=== PATIENT | female | born 1960 | race Two or more races ===

== ENCOUNTER 2018-04-15 10:36 | Emergency (ER) | payer OTHER ==
[~2018-04-15] VITALS: Ht 152.4 cm; Wt 59.0 kg
[2018-04-15 10:50] VITALS: BP 172/77
[2018-04-15] MEDS ORDERED: IBUPROFEN600 MG ORAL (10:57)
--- NOTE | 2018-04-15 11:03 | Emergency Room Report ---
History of Present Illness General Chief Complaint: Back Injury Source: Patient Present Illness HPI 57-year-old female presents with right low back pain that started 6 days ago when she was at work and a cart hit her in the right low back, she reports she did not fall down, had no major injuries, went to an urgent care center that day was given anti-inflammatories, today she woke up and felt it hurt her again when she leaned forward so she decided, to get checked out and requests an x- ray. She denies any use of anticoagulants or blood thinners, she is not on any medications other than pain meds were prescribed last week by urgent care, she denies any numbness tingling weakness, urinary symptoms, or any other complaints. Allergies: Coded Allergies: No Known Allergies (Unverified , 04/15/18) Patient History Past Medical History: see triage record Reviewed Nursing Documentation: PMH: Agreed; PSxH: Agreed Nursing Documentation-PMH Past Medical History: No History, Except For Hx Hypertension: Yes Review of Systems All Other Systems: negative except mentioned in HPI Physical Exam Vital Signs Date Time Temp Pulse Resp B/P (MAP) Pulse Ox O2 Delivery O2 Flow Rate FiO2 04/15/18 10:48 98.1 98 14 172/77 97 Room Air 98.1 Sp02 EP Interpretation: reviewed, normal General Appearance: no apparent distress, alert, non-toxic Head: normocephalic Eyes: bilateral eye normal inspection, bilateral eye PERRL, bilateral eye EOMI ENT: normal ENT inspection, hearing grossly normal, normal pharynx, no angioedema, normal voice, moist mucus membranes Neck: normal inspection, full range of motion, supple, supple/symm/no masses Respiratory: chest non-tender, lungs clear, normal breath sounds, chest symmetrical, palpation of chest normal Cardiovascular #1: normal peripheral pulses, regular rate, rhythm, no edema Cardiovascular #2: 2+ radial (R), 2+ radial (L), 2+ dorsalis pedis (R), 2+ dorsalis pedis (L) Gastrointestinal: normal inspection, non tender, soft, no mass, no guarding, no rebound Rectal: deferred Genitourinary: normal inspection, no CVA tenderness Musculoskeletal: back normal, gait/station normal, normal range of motion, non- tender, no calf tenderness Neurologic: alert, responsive, load mixer III-XII nml as tested, motor strength/tone normal, SLR negative, sensory intact, speech normal Psychiatric: judgement/insight normal, memory normal, mood/affect normal Skin: normal color, no rash, warm/dry, normal turgor, other - No contusions, no hematomas, no ecchymosis Lymphatic: no adenopathy Medical Decision Making Diagnostic Impression: Primary Impression: Muscle strain Additional Impression: Injury of back ER Course Patient was unremarkable examination, likely muscle strain, examination and x- ray normal, will discharge home with reassurance and ibuprofen Other X-Ray Diagnostic Results Other X-Ray Diagnostic Results : X-Ray ordered: Lumbar spine # of Views/Limited Vs Complete: 3 View Indication: Pain Interpretation: no dislocation, no soft tissue swelling, no fractures, nonspecific bowel gas, no sbo Impression: No acute disease Electronically Signed by: Angelic Feldman MD Last Vital Signs Date Time Temp Pulse Resp B/P (MAP) Pulse Ox O2 Delivery O2 Flow Rate FiO2 04/15/18 10:48 98.1 98 14 172/77 97 Room Air 98.1 Disposition: HOME, SELF-CARE Condition: Stable Scripts Ibuprofen* (MOTRIN*) 600 Mg Tablet 600 MG ORAL Q8H PRN for For Pain, #10 TAB 0 Refills Prov: ANGELIC FELDMAN M.D 04/15/18 Departure Forms: Return to Work Return to Work in (Days): 1 Patient Instructions: Back Pain, Adult ANGELIC FELDMAN M.D Apr 15, 2018 11:03
--- NOTE | 2018-04-15 12:30 | Diagnostic Imaging Report ---
EXAM: XR Lumbar Spine, 2 or 3 Views CLINICAL HISTORY: PAIN TECHNIQUE: Frontal and lateral views of the lumbar spine. COMPARISON: No relevant prior studies available. FINDINGS: Vertebrae: Grade 1 anterolisthesis of L4 relative to L5 with 6 mm offset. 5 [id number] lumbar vertebral segments. The lumbar vertebral body heights are preserved without evidence of acute fracture. Disc spaces: Multilevel degenerative changes with joint space loss and endplate osteophytes, most prominent at T12-L1. Bilateral facet arthrosis, most prominent at L4-5 and L5-S1. Soft tissues: Unremarkable. IMPRESSION: 1. Grade 1 anterolisthesis of L4 relative to L5 with 6 mm offset. 2. Multilevel degenerative changes with joint space loss and endplate osteophytes, most prominent at T12-L1. 3. Bilateral facet arthrosis, most prominent at L4-5 and L5-S1.
[2018-04-15 13:05] VITALS: BP 177/78
== END 2018-04-15 13:08 | disposition home or self-care (01) ==
LOC: EMR 11:00
DX: S39.012A Strain of muscle, fascia and tendon of lower back, initial encounter (principal); W22.8XXA Striking against or struck by other objects, initial encounter; Y93.89 Activity, other specified; Y92.89 Other specified places as the place of occurrence of the external cause; Y99.0 Civilian activity done for income or pay; I10 Essential (primary) hypertension
CPT/HCPCS: 72020; 99283